=== PATIENT | female | born 1960 | race Native Hawaiian/Other Pacific Islander ===

== ENCOUNTER 2022-04-17 08:42 | Outpatient (CLI) | payer OTHER, SELFPAY ==
[2022-04-17 16:19] LABS: Total Protein Urine < 5 mg/dL
[2022-04-17 16:20] LABS: Creatinine Urine 74.7 mg/dL
[2022-04-17 16:28] LABS: Microalbumin Creatinine Ratio 10 mg/g (0-30); Microalbumin Urine 1 mg/dL
[2022-04-17 17:43] LABS: Hepatitis C Virus Antibody* Negative (Negative)
[2022-04-17 17:59] LABS: Albumin* 4.3 g/dL (3.3-5.0); Chloride* 106 mmol/L (96-114); Sodium* 140 mmol/L (135-149)
[2022-04-17 18:00] LABS: Potassium* 4.3 mmol/L (3.6-5.1)
[2022-04-17 18:02] LABS: Alkaline Phosphatase* 116 U/L (40-150); Aspartate Amino Transferase* 21 U/L (12-35); Bilirubin Total* 0.5 mg/dL (0.1-1.5); Blood Urea Nitrogen* 16 mg/dL (7-30); Carbon Dioxide* 25 mmol/L (20-32); Cholesterol* 146 mg/dL (90-199); Creatinine* 0.5 mg/dL (0.5-1.5); Estimated Glomerular Filt Rate 105 ml/min; Glucose* 180 mg/dL (60-115); Total Protein* 6.9 g/dL (6.0-8.3); Triglycerides* 154 mg/dL (40-149)
[2022-04-17 18:03] LABS: Alanine Aminotransferase* 17 U/L (4-35); Calcium* 8.8 mg/dL (8.4-10.6); HDL Cholesterol* 36 mg/dL (>=50); LDL Cholesterol Calculated 80 mg/dL (<100)
[2022-04-17 21:32] LABS: Vitamin B12* 420 pg/mL (243-894)
== END 2022-04-17 08:43 | disposition home or self-care (01) ==
PROVIDERS: Visit Provider Family Medicine
DX: Z01.419 Encounter for gynecological examination (general) (routine) without abnormal findings (principal); E78.5 Hyperlipidemia, unspecified; I10 Essential (primary) hypertension; E11.9 Type 2 diabetes mellitus without complications; Z11.59 Encounter for screening for other viral diseases; Z79.899 Other long term (current) drug therapy
CPT/HCPCS: 80053; 80061; 82043; 82570; 82607; 84156; 86803

== ENCOUNTER 2023-01-25 13:35 | Outpatient (CLI) | payer OTHER, SELFPAY ==
--- NOTE | 2023-01-25 14:00 | CRLHL7_ITS ---
For Patients: As a result of the Century Cures Act, medical imaging exams and procedure reports are released immediately into your electronic medical record. You may view this report before your referring provider. If you have questions, please contact your health care provider. BILATERAL SCREENING MAMMOGRAM WITH COMPUTER-AIDED DETECTION AND TOMOSYNTHESIS TECHNIQUE: CC and MLO views were obtained. These mammographic images have been obtained using full-field digital technique. These mammographic images were interpreted with the benefit of computer-aided detection. Breast Tomosynthesis was used in this interpretation. COMPARISON FILM: 04/25/21. FINDINGS: There are scattered areas of fibroglandular density IMPRESSION: There is no radiographic evidence for malignancy. ASSESSMENT: BI-RADS Category 1: Negative RECOMMENDATION: Routine screening mammogram in 1 year. A lay language report of this examination will be provided to the patient. Raul Nogueira M.D. Diagnostic Radiologist [email or web address] [email or web address]/[email or web address] / be/Dictated by: Raul Nogueira MD @ 01/28/2023 8:44:00 AM (Electronically Signed)
== END 2023-01-25 13:36 | disposition home or self-care (01) ==
LOC: MAMMO 13:36
PROVIDERS: PCP Family Medicine; Visit Provider Family Medicine
DX: Z12.31 Encounter for screening mammogram for malignant neoplasm of breast (principal)
CPT/HCPCS: 77063; 77067

== ENCOUNTER 2023-08-15 08:00 | Outpatient (CLI) | payer OTHER, SELFPAY | END 2023-08-15 08:01 | disposition home or self-care (01) | LOC: NFLDREF 08-22 14:58 | PROVIDERS: PCP Family Medicine; Referring Provider Family Medicine; Visit Provider Family Medicine | DX: Z90.3 Acquired absence of stomach [part of] (principal) | CPT/HCPCS: 80053; 82306; 82607; 83735; 84100; 84590; 84630 ==

== ENCOUNTER 2024-01-21 07:51 | Outpatient (CLI) | payer OTHER, SELFPAY | END 2024-01-21 07:52 | disposition home or self-care (01) | PROVIDERS: PCP Family Medicine; Visit Provider Family Medicine | DX: I10 Essential (primary) hypertension (principal); E11.9 Type 2 diabetes mellitus without complications; E78.5 Hyperlipidemia, unspecified; B37.9 Candidiasis, unspecified | CPT/HCPCS: 80061; 82043; 82570; 82607 ==

== ENCOUNTER 2024-07-22 14:41 | Outpatient (CLI) | payer OTHER, SELFPAY | END 2024-07-22 14:42 | disposition home or self-care (01) | LOC: RAD 14:43 | PROVIDERS: PCP Family Medicine; Visit Provider Family Medicine | DX: Z13.820 Encounter for screening for osteoporosis (principal) | CPT/HCPCS: 77080 ==